=== PATIENT | female | born 1990 | race Caucasian/White ===

== ENCOUNTER → 2017-02-04 | Outpatient (REF) | payer OTHER | LOC: M SFHCLERA 18:43 | PROVIDERS: ATTEND Physician Assistant | DX: R30.0 Dysuria (principal) ==

== ENCOUNTER → 2017-03-25 | Outpatient (CLI) | payer OTHER ==
--- NOTE | 2017-03-25 10:49 | REP ---
Clinical: Dating and viability. Technique: Transabdominal and transvaginal first trimester obstetrical ultrasound with color Doppler evaluation. Findings: Retroverted uterus measures 9.1 x 5.5 x 6.6 cm. A single gestational sac is identified with yolk sac and pole. CRL of 5.5 mm corresponds to 6 weeks 2 days gestational age. However no cardiac activity is appreciated. Maternal ovaries are normal in appearance and vascularity with 10 mm involuting cyst in the left ovary. No pelvic fluid. Impression: Single gestational sac with yolk sac and pole noted. No cardiac activity is identified. Differential diagnosis includes spontaneous and very early live intrauterine . Correlation with serial HCG levels recommended and repeat ultrasound as necessary. Signed by Joel Flores MD 03/25/2017 10:40 A
== END ==
LOC: M RAD 09:52
PROVIDERS: ATTEND Nurse Practitioner Women's Health
DX: O36.80X0 Pregnancy with inconclusive fetal viability, not applicable or unspecified (principal); Z3A.01 Less than 8 weeks gestation of pregnancy

== ENCOUNTER → 2017-04-04 | Day surgery (SDC) | payer OTHER ==
[~2017-04-04] MED LIST: KETOROLAC 60 MG/2 ML VIAL (J1885) As Ordered ONE; LIDOCAINE 1% SDV INJ 30 ML VIAL As Ordered ONE; LIDOCAINE 2% INJ 100 MG/5 ML SDV (FOR ANES.) As Ordered ONE; LR 1,000 ML IV ONE; LR 1,000 ML IV SCH; MIDAZOLAM INJ 2 MG/2 ML VIAL (J2250) As Ordered ONE; ONDANSETRON 4MG/2ML VIAL (J2405) As Ordered ONE; ONDANSETRON 4MG/2ML VIAL (J2405) IV PRN; PERCOCET 5MG/325MG TAB PO PRN; PREN1TAB20 PO; PROPOFOL 200 MG/20 ML VIAL As Ordered ONE; RHOGAM 300 MCG (1500 IU) INJ (J2790) IM ONE; SILVER NITRATE APPLICATOR As Ordered ONE; dexameTHASONE 4 MG/ML 1ML VIAL (J1100) As Ordered ONE; fentaNYL 100 MCG/2 ML INJECTION (J3010) As Ordered ONE; fentaNYL 100 MCG/2 ML INJECTION (J3010) IV PRN
[2017-04-04 14:24] LABS: MEAN CORPUSCULAR HEMOGLOBIN 30.6 pg (27.0-33.0); MEAN CORPUSCULAR HGB CONC 34.1 g/dl (32.0-36.5); MEAN CORPUSCULAR VOLUME 89.8 fl (80.0-96.0); RED CELL DISTRIBUTION WIDTH 11.6 % (11.5-14.5)
[2017-04-04 16:45] VITALS: BP 143/74
== END ==
LOC: M SDC 13:01
PROVIDERS: ATTEND Obstetrics & Gynecology
DX: O02.1 Missed abortion (principal); Z88.0 Allergy status to penicillin
CPT/HCPCS: 36415; 59820; 85027; 86850; 86900; 86901; 88305; J1100; J1885; J2250; J2405; J2790; J3010